=== PATIENT | female | born 1950 | race Caucasian/White ===

== ENCOUNTER → 2016-11-20 | Outpatient (CLI) | payer OTHER ==
[~2016-11-20] MED LIST: ACTOS15 MG PO; ADVAIR 250/501 DISK IH; ALBUTEROL17 GM IH; AMIODARONE HCL200 MG PO; ASCORBIC ACID500 M3 PO; ASPIRIN BUFFER325 MG PO; ATENOLOL100 M1 PO; ATROVENT 0.06%15 ML BOTH NARES; ATROVENT 0.06%15 ML NS; CALCIUM + D SO1 EACH PO; CALCIUM 500 MG1 EAC2 PO; CALTRATE 6001 TABLET PO; CENTRUM SILVER1 EACH PO; DILTIAZEM 24HR240 MG PO; DILTIAZEM 24HR360 M1 PO; ENDOCET 5-3251 EACH PO; FUROSEMIDE80 MG PO; GLIPIZIDE ER2.5 MG PO; Klonopin PO; LIPITOR5 MG PO; LOPRESSOR100 M1 PO; MAGNESIUM400 M1 PO; METFORMIN HCL750 MG PO; MONTELUKAST SOD10 MG PO; MULTAQ400 MG PO; NEXIUM40 MG PO; PERCOCET 5-3251 EACH PO; POTASSIUM CHLO10 ME4 PO; PRADAXA150 MG PO; PRAVASTATIN SOD80 MG PO; PROAIR HFA8.5 GM IH; RHINOCORT AQUA8.6 G1 IH; RHINOCORT AQUA8.6 G1 NS; SYMBICORT60 INHALAT IH; TRIAMTERENE-HC1 EAC2 PO; Toprol XL PO; ULTRAM50 MG PO; VITAMIN D31000 UNI2 PO; ZESTRIL,PRINIVIL5 MG PO; ZOFRAN ODT4 MG PO; ZYRTEC10 MG PO; [UNRECOGNIZED DRUG - OTHER] TP
== END | disposition home or self-care (01) ==
LOC: RES 07:26
DX: J45.30 Mild persistent asthma, uncomplicated (principal)
CPT/HCPCS: 94010; 94070; 94726; 94729